=== PATIENT | female | born 1990 | race Caucasian/White ===

== ENCOUNTER 2016-08-22 16:51 | Emergency (ER) | payer OTHER ==
[2016-08-22 18:04] VITALS: BP 122/67
--- NOTE | 2016-08-22 20:20 | RAD ---
Indication: Bruising and swelling just inferior and lateral to the RIGHT orbit following injury August 14. Comparison: None. Technique: 4 view orbits series. Report: The orbital margins and zygomatic arches appear intact. No fracture evident. Unremarkable soft tissue contours. No paranasal sinus fluid levels evident. IMPRESSION: No radiographic evidence for orbital margin fracture.
--- NOTE | 2016-08-23 00:05 | ED ---
Throat Pain/Nasal Congestion - HPI Summary HPI Summary: Patient arrives to with boyfriend/partner stating she fell on a window sill last week and is now feeling a deformity in the lateral part of her left eye. She also notes to a KEY since the accident. she has bruising and redness over the eye which has begun to heal. Her headaches are located in the right temporal area and she normally does not have KEY. KEY not worst of life and are intermittent and not worse with light or sounds. - History of Current Complaint Chief Complaint: UCHeadache Hx Obtained From: Patient Onset/Duration: Sudden Onset Severity: Mild - Epiglottits Risk Factors Epiglottis Risk Factors: Negative - Allergies/Home Medications Allergies/Adverse Reactions: Allergies Allergy/AdvReac Type Severity Reaction Status Date / Time No Known Allergies Allergy Verified 08/22/16 18:04 Home Medications: Home Medications Ibuprofen [Ibuprofen 200 MG] 600 mg PO PRN 08/22/16 [History] PMH/Surg Hx/FS Hx/Imm Hx Previously Healthy: Yes Endocrine/Hematology History: Denies: Hx Diabetes, Hx Systemic Lupus Erythematosus Cardiovascular History: Denies: Hx Congestive Heart Failure, Hx Hypertension Respiratory History: Reports: Hx Asthma History: Denies: Hx Dialysis, Hx Renal Disease Musculoskeletal History: Denies: Hx Rheumatoid Arthritis - Cancer History Hx Chemotherapy: No Infectious Disease History: No Infectious Disease History: Denies: Traveled Outside the [place] in Last 30 Days - Social History Occupation: Employed Full-time Lives: With Family Alcohol Use: Weekly Hx Substance Use: No Substance Use Type: Reports: None Hx Tobacco Use: No Smoking Status (MU): Never Smoked Tobacco Review of Systems Constitutional: Negative Eyes: Negative Respiratory: Negative Gastrointestinal: Negative Positive: no symptoms reported, see HPI Musculoskeletal: Negative Positive: Bruising - over orbit of the left eye inferiorly Positive: Headache - left temporal lobe radiating to the frontal lobe Psychological: Normal All Other Systems Reviewed And Are Negative: Yes Physical Exam Triage Information Reviewed: Yes Vital Signs On Initial Exam: Initial Vitals Temp Pulse Resp BP Pulse Ox 98.5 F 92 14 122/67 100 08/22/16 17:55 08/22/16 17:55 08/22/16 17:55 08/22/16 17:55 08/22/16 17:55 Vital Signs Reviewed: Yes Appearance: Positive: Well-Appearing, No Pain Distress, Well-Nourished Skin: Positive: Warm, Skin Color Reflects Adequate Perfusion, Other - ecchymosis , erythema noted over orbit of eye ENT: Positive: Pharynx normal Neck: Positive: Supple, No Lymphadenopathy Respiratory/Lung Sounds: Positive: Clear to Auscultation, Breath Sounds Present Cardiovascular: Positive: Normal, RRR Bowel Sounds: Positive: Present Neurological: Positive: Normal, Sensory/Motor Intact, Alert, Oriented to Person Place, Time, Speech Normal Psychiatric: Positive: Normal, Affect/Mood Appropriate AVPU Assessment: Alert - [place] Coma Scale Best Eye Response: 4 - Spontaneous Best Motor Response: 6 - Obeys Commands Best Verbal Response: 5 - Oriented Diagnostics - Vital Signs Vital Signs Temp Pulse Resp BP Pulse Ox 08/22/16 17:55 98.5 F 92 14 122/67 100 - Laboratory Lab Results: Lab Results 08/22/16 Range/Units 19:33 POC Ur Test Negative (Negative) Lab Statement: Any lab studies that have been ordered have been reviewed, and results considered in the medical decision making process. EENT Course/Dx - Course Course Of Treatment: xray negative for fracture, although deformity is felt on physical exam. patient agrees to follow up with PCP. no KEY medication given as patient has ibuprofen at home. encouraged to follow up with PCP and possibly plastic surgeon - Differential Diagnoses Differential Diagnoses: Foreign Body, Fracture, Pain of Unknown Etiology, Periorbital/Orbital Cellulitis, Perforated TM, Other - contusion - Diagnoses Provider Diagnoses: Contusion, eye Discharge - Discharge Plan Condition: Stable Disposition: HOME Patient Education Materials: Facial Fracture (ED) Referrals: No Primary Care Phys,NOPCP [Primary Care Provider] - Additional Instructions: Follow up with PCP You may need further imaging such as a CT scan If symptoms continue, please go to the ED. Images - Images Head: 1 - ecchymosis, erythema and swelling. deformity noted just to the lateral side of the lateral canthus.
== END 2016-08-22 20:39 | disposition home or self-care (01) ==
LOC: UCCORT 16:51
DX: S05.12XA Contusion of eyeball and orbital tissues, left eye, initial encounter (principal); W18.09XA Striking against other object with subsequent fall, initial encounter; Y93.9 Activity, unspecified; Y92.9 Unspecified place or not applicable; R51 Headache; J45.909 Unspecified asthma, uncomplicated; Z32.02 Encounter for pregnancy test, result negative
CPT/HCPCS: 70200; 84702; 99211; G0463